=== PATIENT | male | born 1940 | race Caucasian/White ===

== ENCOUNTER 2017-08-13 16:41 | Emergency (ER) | payer OTHER ==
[~2017-08-13] VITALS: Ht 167.6 cm; Wt 86.2 kg
[~2017-08-13 16:41] MED LIST: ATENOLOL50 MG PO; CIPRO500 MG PO; LAC PO; MAC100 PO; ZESTRIL20 MG PO
[2017-08-13 16:51] VITALS: Ht 167.6 cm; Wt 86.2 kg
[2017-08-13 23:25] VITALS: BP 134/75
== END 2017-08-13 23:25 | disposition home or self-care (01) ==
LOC: ED 16:41
DX: M54.9 Dorsalgia, unspecified (principal); J45.909 Unspecified asthma, uncomplicated; I10 Essential (primary) hypertension
CPT/HCPCS: J1170; J1885; Q0162

== ENCOUNTER 2018-06-01 15:46 | Emergency (ER) | payer OTHER ==
[~2018-06-01] VITALS: Ht 175.3 cm; Wt 87.5 kg
[2018-06-01 15:49] VITALS: BP 154/76; Ht 175.3 cm; Wt 87.5 kg
== END 2018-06-01 16:57 | disposition left against medical advice (07) ==
LOC: ED 15:46
DX: Z53.21 Procedure and treatment not carried out due to patient leaving prior to being seen by health care provider (principal)

== ENCOUNTER 2020-09-06 10:52 | Emergency (ER) | payer OTHER, SELFPAY ==
[~2020-09-06] VITALS: Ht 177.8 cm; Wt 86.6 kg
[2020-09-06 11:01] VITALS: Ht 177.8 cm; Wt 86.6 kg
[2020-09-06 11:43] LABS: PLATELET COUNT 257 x10^3mcL (152-348); RED CELL DISTRIBUTION WIDTH 13.5 % (12.1-16.2)
[2020-09-06 12:10] LABS: CALCIUM 9.4 mg/dL (8.5-10.1); CARBON DIOXIDE 24.4 mmol/L (21-32); CHLORIDE SERUM 103 mmol/L (98-107); CREATININE SERUM 0.7 mg/dL (0.7-1.3); GLUCOSE SERUM 92 mg/dL (74-106); POTASSIUM SERUM 4.1 mmol/L (3.5-5.1); SODIUM SERUM 135 mmol/L (136-145)
[2020-09-06 12:16] LABS: ALBUMIN 4.2 g/dL (3.4-5.0); ALKALINE PHOSPHATASE 75 U/L (46-116); ALT/SGPT 25 U/L (16-63); AST/SGOT 11 U/L (15-37); BILIRUBIN TOTAL 0.68 mg/dL (0.20-1.00); TOTAL PROTEIN, SERUM 7.5 g/dL (6.4-8.2)
[2020-09-06 12:19] LABS: microscopic required? NO
[2020-09-06 12:41] LABS: UA SPECIFIC GRAVITY 1.025 (1.005-1.035); urine erythrocyte NEGATIVE (NEGATIVE)
[2020-09-06 14:36] VITALS: BP 149/79
== END 2020-09-06 14:36 | disposition home or self-care (01) ==
LOC: ED 10:52
PROVIDERS: Emergency Medicine
DX: U07.1 COVID-19 (principal); J98.01 Acute bronchospasm; I10 Essential (primary) hypertension
CPT/HCPCS: J7613; J7644; U0003